=== PATIENT | male | born 1975 | race Caucasian/White ===

== ENCOUNTER 2022-08-11 13:33 | Emergency (ER) | payer OTHER ==
[~2022-08-11] VITALS: Ht 157.5 cm; Wt 71.2 kg
--- NOTE | 2022-08-11 13:54 | NUR ---
SANDRO, PT HAD A SEIZURE ON FLOOR, APPROX 1 MIN , NO S/S OF INJURY AT THIS TIME, IV R AC INTACT PATENT FLUSHING
--- NOTE | 2022-08-11 13:55 | NUR ---
MD EVALUATING PT/ VS BEING MONITORED, BED LOW TO FLOOR FOR SAFETY
--- NOTE | 2022-08-11 13:55 | NUR ---
LAB FOR BLOOD DRAWN
[2022-08-11 14:02] LABS: BASOPHILS % (AUTO) 0.4 % (0.0-2.0); EOSINOPHILS % (AUTO) 0.9 % (0.0-6.0); HEMATOCRIT 48 % (39-51); HEMOGLOBIN 15.9 g/dL (13.5-17.5); LYMPHOCYTES # (AUTO) 1.8 K/uL (0.8-4.8); LYMPHOCYTES % (AUTO) 22.5 % (20.0-44.0); MEAN CORPUSCULAR HGB CONC 34 g/dl (31.0-36.0); MEAN CORPUSCULAR VOLUME 89 fL (80-96); MONOCYTES # (AUTO) 0.5 K/uL (0.1-1.30); MONOCYTES % (AUTO) 6.9 % (2.0-12.0); NEUTROPHILS # (AUTO) 5.5 K/uL (1.8-8.9); NEUTROPHILS % (AUTO) 69.3 % (43.0-81.0); PLATELET COUNT (AUTO) 366 K/uL (150-450); RED BLOOD CELL COUNT(AUTO) 5.33 MIL/uL (4.5-6.0); WHITE BLOOD COUNT (AUTO) 7.9 K/uL (4.3-11.0)
[2022-08-11] MEDS ORDERED: CARB100T51 PO (14:26)
[2022-08-11] MEDS ORDERED: LEVE500T20 PO (14:26)
[2022-08-11] MEDS ORDERED: CLOP75TA15 PO (14:26)
[2022-08-11] MEDS ORDERED: ASPI-1169 PO (14:26)
[2022-08-11 14:37] LABS: CALCIUM, SERUM 9.1 mg/dL (8.5-10.1); CREATININE 1.2 mg/dL (0.6-1.3)
[2022-08-11 15:17] VITALS: BP 154/101
== END 2022-08-11 15:17 | disposition home or self-care (01) ==
LOC: ER 14:09
DX: G40.909 Epilepsy, unspecified, not intractable, without status epilepticus (principal); Z79.899 Other long term (current) drug therapy
CPT/HCPCS: 36415; 80048-TC; 80156-TC; 85025-TC